=== PATIENT | male | born 1945 | race Caucasian/White ===

== ENCOUNTER 2019-08-30 11:53 | Outpatient (CLI) | payer MEDICARE, BC, SELFPAY ==
[2019-08-30 14:18] LABS: Calculated LDL 103 mg/dL (<100); Cholesterol 195 mg/dL (<200); Glucose 81 mg/dL (74-106); HDL Cholesterol 36 mg/dL (40-60); Triglyceride 284 mg/dL (<150)
== END 2019-08-30 12:13 ==
PROVIDERS: PCP Family Medicine; Visit Provider Family Medicine
DX: E78.5 Hyperlipidemia, unspecified (principal)
CPT/HCPCS: 36415; 80061; 82947

== ENCOUNTER 2020-02-29 03:05 | Outpatient (CLI) | payer MEDICARE, BC, SELFPAY ==
[2020-03-01 09:19] LABS: PSA, Screening 2.5 ng/mL (0.0-6.5)
== END 2020-02-29 03:25 ==
PROVIDERS: PCP Family Medicine
DX: N40.0 Benign prostatic hyperplasia without lower urinary tract symptoms (principal); Z12.5 Encounter for screening for malignant neoplasm of prostate
CPT/HCPCS: 36415; 84153

== ENCOUNTER → 2020-03-28 14:10 | Outpatient (BNVA) | payer MEDICARE, BC, SELFPAY | PROVIDERS: PCP Family Medicine; Referring Provider Family Medicine; Visit Provider Nurse Practitioner Gerontology | DX: N40.1 Benign prostatic hyperplasia with lower urinary tract symptoms (principal); R39.12 Poor urinary stream; K62.4 Stenosis of anus and rectum | CPT/HCPCS: 99204 ==

== ENCOUNTER 2021-09-11 01:52 | Outpatient (CLI) | payer MEDICARE, BC, SELFPAY ==
[2021-09-11 08:25] LABS: Calculated LDL 120 mg/dL (<100); Cholesterol 191 mg/dL (<200); HDL Cholesterol 40 mg/dL (40-60); Triglyceride 159 mg/dL (<150)
== END 2021-09-11 01:53 | disposition home or self-care (01) ==
LOC: LBO 01:53
PROVIDERS: PCP Family Medicine; Visit Provider Family Medicine
DX: E78.5 Hyperlipidemia, unspecified (principal)
CPT/HCPCS: 36415; 80061

== ENCOUNTER 2023-09-01 09:40 | Outpatient (CLI) | payer MEDICARE, BC, SELFPAY ==
[2023-09-01 12:26] LABS: Glucose 95 mg/dL (74-106)
[2023-09-02 09:59] LABS: Calculated LDL 91 mg/dL (<100); Cholesterol 185 mg/dL (<200); HDL Cholesterol 36 mg/dL (40-60); Triglyceride 291 mg/dL (<150)
[2023-09-02 15:00] LABS: Lab Add On Test DONE
== END 2023-09-01 09:41 | disposition home or self-care (01) ==
LOC: LOS 09:40
PROVIDERS: PCP Family Medicine; Referring Provider Family Medicine; Visit Provider Family Medicine
DX: R73.9 Hyperglycemia, unspecified (principal); Z13.220 Encounter for screening for lipoid disorders
CPT/HCPCS: 36415; 80061; 82947

== ENCOUNTER 2024-06-16 14:57 | Emergency (ER) | payer MEDICARE, BC, SELFPAY ==
[2024-06-16 15:04] VITALS: BP 124/84; PULSE 97; RESP 16; TEMP 37.1; O2SAT 98
[2024-06-16] MEDS: Lidocaine 2% Pres-Free W/EPI 1/200,000 20 ML VIAL (15:46)
[2024-06-16] MEDS: Diph,Pertuss(Acell),Tet Vac/Pf 0.5 ML SYR IM (16:05)
--- NOTE | 2024-06-16 16:09 | ED.GENADUL_ITS ---
Discharge Plan Disposition Patient Disposition: Home Condition: Stable Discharge Details Clinical Impression: Laceration of left wrist Primary Care Provider: Tyree Bedolla ED Provider: Brianna Anglin Home Meds and New Rx's Prescriptions: No Action Advil PM 1 EACH tablet 1 tab PO HS PRN Discharge Instructions Instructions: Laceration Repair With Stitches ED Additional Instructions: You were seen in the emergency department today for evaluation of a laceration. You had a full physical examination that was reassuring and did not have any injury to your tendons, nerves, or blood vessels. You had 12 stitches placed, which need to be removed in 7 to 10 days. Please keep the area clean and dry, use antibiotic ointment at least once per day, and change the dressing anytime you need to. Please avoid soaking or scrubbing, pat dry after bathing or washing hands. You can use Tylenol and ibuprofen for management of pain, and should follow-up with your primary care provider for any concerns. Thank you for allowing us to be part of your care. HPI General Mode of arrival: ambulatory . Date/Time Provider Initiated Documentation: 06/16/24 15:12 . Limitations to Documentation: no limitations . Information obtained by: patient, family and old records reviewed . HPI Narrative: HPI: This is a 78-year-old male patient with a past medical history significant for KADY, who is presenting for evaluation of a wrist injury. The patient reports that he was using a chainsaw to cut down a tree, the tree fell and knocked the chainsaw from his hand and he sustained a laceration to the flexor aspect of the wrist. The patient reports that he did not sustain additional injury during this event, presented immediately for care, took no medications prior to arrival. He states that he is not experiencing any tingling, numbness, or weakness of the hand. Does not recall when his last tetanus shot was. Was in his normal state of health prior to this event. Exam: Gen: Awake and alert, in no apparent distress HEENT: Non-icteric sclera Neck: Supple Lungs: No apparent respiratory distress, normal respiratory effort. CV: Appears well perfused Abdomen: Non-distended MSK: Moves 4 extremities without apparent limitation in ROM. The patient has full preserved range of motion, flexion and extension against resistance at the wrist, hand, fingers. He has no sensory deficits, has brisk capillary refill. Skin: Visualized skin without rashes, cyanosis. The patient has an approximately 5 cm laceration to the flexor aspect of the left wrist, with visible subcutaneous tissue and fascia. No tendon disruption, arterial disruption, active bleeding Neuro: Normal Gait, no obvious focal deficits or facial asymmetry. Speaks in full, clear sentences. Psych: Appropriate for situation. MDM: This is a 78-year-old male patient presenting for evaluation of wrist laceration. Differential includes but is not limited to laceration, certainly c onsidered muscular injury, tendinous injury, neurovascular injury, that this is not consistent with the patient's physical examination. I considered foreign body though this was not visualized on thorough cleansing of the wound, no concerning mechanism or physical exam findings for underlying fracture or dislocation. ED Course: Tetanus was updated, and the laceration was repaired as noted below in a single layer. The patient tolerated this procedure well, and we discussed suture and wound care. Sutures will be removed in 7 to 10 days, patient's feels comfortable performing wound care. At this time, the patient has had a full medical evaluation and is safe for discharge to home. They are hemodynamically stable, ambulatory, and tolerating PO. They are understanding of the follow-up plan and return precautions. They left our facility without incident. Brianna Anglin MD Related Data Home Medications ?Medication ?Instructions ?Recorded ?Confirmed ibuprofen-diphenhydramine citrate 1 tab PO HS PRN 08/25/17 06/16/24 200 mg-38 mg tablet (Advil PM) Allergies Allergy/AdvReac Type Severity Reaction Status Date / Time No Known Allergies Allergy Verified 06/16/24 15:06 General Stated Complaint: Laceration FLORA: 2 Course Vital Signs Vital signs: Vital Signs Temperature 37.1 C 06/16/24 15:04 Pulse 97 H 06/16/24 15:04 Respiratory Rate 16 06/16/24 15:04 Blood Pressure 124/84 06/16/24 15:04 Pulse Oximetry 98 06/16/24 15:04 Temperature 37.1 C 06/16/24 15:04 Pulse 97 H 06/16/24 15:04 Respiratory Rate 16 06/16/24 15:04 Respiratory Effort Normal 06/16/24 15:07 Blood Pressure 124/84 06/16/24 15:04 Pulse Oximetry 98 12/05/24 15:04 Pain Level 4 06/16/24 15:04 Procedures Laceration Laceration 1: Site: upper extremity Side (If applicable): left Size (cm): 6 Description: linear Depth: simple, single layer Local anesthetic: Lidocaine 2% and with Epi Amount of anesthesia used (mL): 6 Pre-repair: wound explored, irrigated extensively and deep structures intact Skin layer closed with: other (ethilon) Size (cm): 4-0 Number of sutures: 12 Technique: simple, interrupted Medical Decision Making Quality:SDOH Health Related Social Needs: No Data to Display PFSH All Active Problems (Updated 06/16/24 @ 16:10 by Brianna Anglin MD) Laceration of left wrist (Acute) Lipid screening (Acute) Mass of left foot (Acute) Cellulitis (Acute) Benign prostatic hyperplasia (Acute 06/20/13) Male erectile disorder (Acute 06/20/13) 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 Maternal Grandfather , age 30 - Portuguese Influenza Stroke Paternal Grandfather , age 85 Stroke Maternal Grandmother , age 50 Stroke Heart disease Paternal Grandmother , age 92 Heart disease Son No problems noted. Son No problems noted. Daughter No problems noted. Mother , age 92 Depression Social History (Updated 09/11/23 @ 18:24 by Alvina Bhakta) Smoking/Tobacco Use Status: Former Tobacco Use tobacco type: cigarettes Quit Date: 07/13/79 Tobacco: How many years used: 10 Second Hand Exposure: No Counseling given: other Smoking risk assessment performed?: Yes Alcohol Intake: current Alcohol Intake frequency: 0-2 drinks per day Alcohol type: beer Drug use: Occasionally Substance use type: marijuana Counseling given: No Counseling provided: none Caregiver/Support person: No Household members: spouse Housing: house Communication Needs: None Do you need help understanding health information?: Rarely Pets and animals: No Sexually active: Yes Do you think of yourself as: straight/heterosexual Current gender identity: male What is your relationship status?: How often do you talk on the phone with friends or family?: three or more times per week How often do you get together with friends or relatives?: once per week How often do you attend judaism or yarsanism services?: 4 or more times per year Do you belong to any clubs or organized social groups?: yes Panel score (0-1 are the most socially isolated patients): 4 What type of physical activity do you participate in: walking Duration: 45-60 minutes/day Frequency: 3-4 times per week Mecca/Latter-Day: Adventism Special mecca needs: No Seatbelt use: always Helmet use: Yes Helmet use: always Drive intox or ride w/intox dedicated truck driver: No
[2024-06-16 16:19] VITALS: BP 147/77; PULSE 66; RESP 18; TEMP 36.7; O2SAT 98
== END 2024-06-16 16:20 | disposition home or self-care (01) ==
PROVIDERS: Emergency Provider Emergency Medicine; PCP Family Medicine
DX: S61.512A Laceration without foreign body of left wrist, initial encounter (principal); Z23 Encounter for immunization; Z87.891 Personal history of nicotine dependence; W29.3XXA Contact with powered garden and outdoor hand tools and machinery, initial encounter; Y93.H2 Activity, gardening and landscaping; Y92.017 Garden or yard in single-family (private) house as the place of occurrence of the external cause
CPT/HCPCS: 12002; 90471; 90715; 99283; J2004

== ENCOUNTER 2024-09-09 00:59 | Outpatient (CLI) | payer MEDICARE, BC, SELFPAY ==
[2024-09-09 12:58] LABS: Calculated LDL 116 mg/dL (<100); Cholesterol 198 mg/dL (<200); Glucose 106 mg/dL (74-106); HDL Cholesterol 45 mg/dL (>or=40); Triglyceride 185 mg/dL (<150)
== END 2024-09-09 01:00 | disposition home or self-care (01) ==
LOC: LOS 00:59
PROVIDERS: PCP Family Medicine; Visit Provider Family Medicine
DX: R73.9 Hyperglycemia, unspecified (principal); E78.5 Hyperlipidemia, unspecified
CPT/HCPCS: 36415; 80061; 82947

== ENCOUNTER 2024-11-08 11:41 | Observation (INO) | payer MEDICARE, BC, SELFPAY ==
[2024-11-08] VITALS (34 sets, daily range): BP systolic 125–152; BP diastolic 76–106; PULSE 63–83; RESP 10–30; TEMP 35.8–36.2; O2SAT 91–98
--- NOTE | 2024-11-08 11:45 | DI.CT_ITS ---
Exam(s) CT BRAIN NECK CTA EXAM: CT BRAIN NECK CTA CLINICAL HISTORY: Right hand weakness. TECHNIQUE: Imaging Protocol: Axial CT angiography was performed with multi-slice acquisition and mu lti-planar and MIP reconstructions. CONTRAST MATERIAL: Intravenous: Omnipaque 350 Contrast volume:70 ml COMPARISON: No exams were available for comparison FINDINGS: CT Head W/O and W contrast: Ventricles and Extra axial spaces: Normal in size and morphology for the patient's age. Hemorrhage: None. Cerebral parenchyma: No evidence of acute infarct or mass. Midline shift: None. Brainstem/Cerebellum: No acute findings.. Calvarium: Normal. Visualized Paranasal sinuses/Mastoids: Clear. Soft Tissues: Unremarkable. Enhancement: Normal. CTA Brain W: Internal Carotid Arteries: Petrous: Normal. Cavernous: Normal. Cerebral: Normal. Middle Cerebral Arteries: Right: No aneurysm, occlusion or significant stenosis. Left: No aneurysm, occlusion or significant stenosis. Anterior Cerebral Arteries: Right: No aneurysm, occlusion or significant stenosis. Left: No aneurysm, occlusion or significant stenosis. Posterior cerebral Arteries: Right: No aneurysm, occlusion or significant stenosis. Left: No aneurysm, occlusion or significant stenosis. Vertebral Arteries: Right: No aneurysm, occlusion or significant stenosis. Left: No aneurysm, occlusion or significant stenosis. Basilar Artery: No aneurysm, occlusion or significant stenosis. CTA Neck W: Common Carotid: New mild calcification at the common carotid bulbs. Right: No dissection, occlusion or significant stenosis. Left: No dissection, occlusion or significant stenosis. External Carotid: Right: No dissection, occlusion or significant stenosis. Left: No dissection, occlusion or significant stenosis. Internal Carotid: Right: No dissection, occlusion or significant stenosis. Left: No dissection, occlusion or significant stenosis. Vertebral Artery: Right: No dissection, occlusion or significant stenosis. Left: No dissection, occlusion or significant stenosis. Lung Apices: No acute findings. Bones: Degenerative changes. No acute abnormality. Soft Tissues: Normal. IMPRESSION: 1. CTA brain: Normal CTA examination of the [place]. 2. Head CT: Unremarkable CT Head. No evidence of acute infarct or hemorrhage. 3. CTA neck: Mild calcific plaque at the common carotid bulbs. No significant stenosis or evidence o f dissection. Vertebral arteries are intact. RADIATION DOSE DELIVERED: 2,230.71mGy.cm Total DLP DATA REPOSITORY: All CT scans at this facility are submitted to the National Radiology Data Registry (NRDR) Dose Index Registry (DIR) with the [employer] [place] [employer] (ACR). RADIATION OPTIMIZATION: All CT scans at this facility use at least one of these dose optimization te chniques: automated exposure control; mA and/or kV adjustment per patient size (includes targeted exa ms where dose is matched to clinical indication); or iterative reconstruction.
--- NOTE | 2024-11-08 11:45 | RT.EKG_ITS ---
APPROVED REPORT Exam: Resting ECG Reason for Exam: TIA Patient Location: E HR:66 bpm ECG Measurements Heart Rate 66 AXIS MA 205 P 41 QRSd 82 QRS 14 QT 385 T 45 QTc 402 Conclusion Sinus rhythm...normal P axis, V-rate 60- 99 No Occlusion CA
--- NOTE | 2024-11-08 11:46 | ED.GENADUL_ITS ---
Discharge Plan Disposition Patient Disposition: Admit to [facility] Discharge Details Clinical Impression: Transient ischemic attack (TIA) Admit Date/Time: 11/08/24 13:22 Admit Provider: Landon Turner Attending Provider: Landon Turner Primary Care Provider: Tyree Bedolla ED Provider: Mannie Isbell HPI General Date/Time Provider Initiated Documentation: 11/08/24 11:44 . HPI Narrative: MDM This is an overall quite well-appearing normothermic and nontachycardic 79-year-old male with right hand weakness transiently concerning for the possibility of TIA versus stroke. Will send patient for emergent CT angiogram head and neck to assess for any large vessel stenoses for which patient may be a thrombectomy candidate. Patient is not altered to suggest encephalitis. No nuchal rigidity nor fevers to suggest meningitis and no indication for lumbar puncture. No tonic-clonic activity to suggest seizure so no indication for EEG. No chest pain to suggest ACS however will obtain an ECG to assess for dysrhythmia and troponin to assess for myocardial ischemia. Will check basic electrolytes. No rash to suggest zoster. Patient has not been vomiting so my suspicion is low for hypokalemia. Patient is not altered to suggest hyponatremia. 1 PM I spoke with neurology at [facility] who agreed with assessment of TIA in the setting of the patient's nonischemic CT head with no evidence of hemorrhage or critical stenoses. Patient is neither a thrombectomy nor TNK candidate. Neurology advised clopidogrel and aspirin load MRI with hospitalization for echocardiogram. I also ordered the patient high-dose atorvastatin. Tomorrow he will be appropriate for 81 mg of aspirin and 75 mg of clopidogrel. Will send faxed teleneuro note up with the patient. Anticipate hospitalization. 1:12 PM I met with the patient and his family. Patient continues to feel improved. I was in touch with Dr. Turner who graciously agreed to accept patient for hospitalization for neurochecks telemetry and possibility of an updated echo. He will go for MRI at 3 PM. Will continue to monitor on telemetry in the ED. Chronic conditions affecting the care of the patient: N/A History obtained from an outside historian: Patient's External record review: [facility] EMR Diagnostic interpretations performed by me: Per my independent interpretation chest x-ray shows: No acute cardiopulmonary process Per my independent interpretation EKG shows: Narrow complex normal sinus rhythm at a rate of 66 with first-degree AV block. No ST segment abnormalities. No T wave versions. Intervals within normal limits. ]Medications: Clopidogrel aspirin atorvastatin Social determinants of health affecting disposition: N/A Management discussed with: Neurology hospitalist Treatment/interventions considered: N/A Response to therapies provided: Improved symptoms in the ED HPI This is a 79-year-old male arrived emergency department via private vehicle with his in setting of right hand weakness. Patient reportedly has had intermittent episodes of right tongue numbness. He woke up this morning and dropped a coffee cup. He also dropped a steak from his hand which was abnormal for him. He feels well at the moment. He was in his usual state of health yesterday. He denies fevers chest pain shortness of breath. No history of strokes or TIAs in the past. Exam General: Well-appearing in no acute distress speaking in complete sentences. Head: Normocephalic, atraumatic. Eye:[Pupils equal, round reactive to light.] Extraocular eye movements intact. No conjunctival injection. No scleral icterus. Ear, nose, mouth, throat: Grossly normal inspection. Normal voice, handling secretions normally. Neck: Trachea midline. Cardiovascular: Well-perfused distal extremities. Regular rate and rhythm. Respiratory: Nonlabored respiration. Clear lungs bilaterally. Gastrointestinal: Nondistended abdomen.Soft nontender. Musculoskeletal: No edema. Moving all 4 extremities spontaneously. Skin: Normal for age and race, grossly normal temperature and turgor. No acute rash. Neurologic: Cranial nerves II through XII intact grossly. No dysmetria. No dysdiadochokinesia. No pronator drift. gCS 15. Bilateral upper and lower extremity strength 5 out of 5. Psychiatric: Mood and manner are appropriate. Grooming and personal hygiene are appropriate. Related Data Home Medications ?Medication ?Instructions ?Recorded ?Confirmed ibuprofen-diphenhydramine citrate 1 tab PO HS PRN 08/25/17 11/08/24 200 mg-38 mg tablet (Advil PM) tamsulosin 0.4 mg capsule 0.4 mg PO DAILY PRN LUTS #90 caps 09/06/24 11/08/24 Previous Rx's ?Medication ?Instructions ?Recorded tamsulosin 0.4 mg capsule 0.4 mg PO DAILY PRN LUTS #90 caps 09/06/24 Allergies Allergy/AdvReac Type Severity Reaction Status Date / Time No Known Allergies Allergy Verified 11/08/24 11:55 General FLORA: 2 Medical Decision Making Quality:SDOH Health Related Social Needs: No Data to Display PFSH All Active Problems (Updated 11/08/24 @ 13:11 by Mannie Isbell MD) Transient ischemic attack (TIA) (Acute) Lipid screening (Acute) Mass of left foot (Acute) Cellulitis (Acute) Benign prostatic hyperplasia (Acute 06/20/13) Male erectile disorder (Acute 06/20/13) 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 Maternal Grandfather , age 30 - Vietnamese Influenza Stroke Paternal Grandfather , age 85 Stroke Maternal Grandmother , age 50 Stroke Heart disease Paternal Grandmother , age 92 Heart disease Son No problems noted. Son No problems noted. Daughter No problems noted. Mother , age 92 Depression Social History (Updated 09/06/24 @ 13:19 by Rosalinda Braga) Smoking/Tobacco Use Status: Former Tobacco Use tobacco type: cigarettes Quit Date: 07/13/79 Tobacco: How many years used: 10 Second Hand Exposure: No Counseling given: other Smoking risk assessment performed?: Yes Alcohol Intake: current Alcohol Intake frequency: 0-2 drinks per day Alcohol type: beer Drug use: Occasionally Substance use type: marijuana Counseling given: No Counseling provided: none Caregiver/Support person: No Household members: spouse Housing: house Communication Needs: None Do you need help understanding health information?: Rarely Pets and animals: No Sexually active: Yes Do you think of yourself as: straight/heterosexual Current gender identity: male What is your relationship status?: How often do you talk on the phone with friends or family?: three or more times per week How often do you get together with friends or relatives?: once per week How often do you attend shinto or jain services?: 4 or more times per year Do you belong to any clubs or organized social groups?: yes Panel score (0-1 are the most socially isolated patients): 4 What type of physical activity do you participate in: walking Duration: 45-60 minutes/day Frequency: 3-4 times per week [place]/Amish: Mormonism Special mecca needs: No Seatbelt use: always Helmet use: Yes Helmet use: always Drive intox or ride w/intox pack train driver: No
[2024-11-08] MEDS: Omnipaque 350 MG/ML 500 ML BTL-Imaging package 75 ML IJ (11:57)
[2024-11-08 11:58] LABS: Abs Immature Grans 0.03 10^3/uL (0.0-0.06); Absolute Basophil Count 0.03 10^3/uL (0.0-0.2); Absolute Eosinophil Count 0.11 10^3/uL (0.0-0.7); Absolute Lymphocyte Count 2.78 10^3/uL (1.2-3.4); Absolute Monocyte Count 0.86 10^3/uL (0.1-0.8); Absolute Neutrophil Count 5.72 10^3/uL (1.2-6.7); Basophils % 0.3 %; Eosinophils % 1.2 %; HCT 47.6 % (40.0-50.0); HGB 15.7 g/dL (13.5-17.5); Immature Grans % 0.3 %; Lymphocytes % 29.2 %; MCH 30.5 pg (27.0-33.0); MCV 92 fL (80-95); MPV 9.4 fL (8.0-11.0); Platelet Count 166 10^3/uL (130-400); RBC 5.15 10^6/uL (4.36-5.78); RDW 13.1 % (11.8-14.1); RDW-SD 44.6 fL; WBC 9.53 10^3/uL (4.4-10.8)
[2024-11-08] MEDS: Normal Saline - Diluent 50 ML VIAL IJ (12:01)
--- NOTE | 2024-11-08 12:20 | DI.RAD_ITS ---
Exam(s) XR CHEST 1V IN DI DEPT EXAM: XR CHEST 1V IN DI DEPT CLINICAL HISTORY: Right hand weakness TECHNIQUE: 2D digital imaging was performed. COMPARISON: No exams were available for comparison FINDINGS: Overlying monitoring leads. LUNGS: Clear. No pleural abnormality seen. HEART: Normal size. AORTA: Normal diameter. BONES: Old right rib fractures. Soft tissues: Unremarkable. IMPRESSION: No acute findings. DATA REPOSITORY: RADIATION DOSE DELIVERED:
[2024-11-08 12:29] LABS: BUN 18 mg/dL (7-18); CREATININE 1.2 mg/dL (0.70-1.30); Calcium 9.9 mg/dL (8.5-10.1); Chloride 104 mmol/L (98-107); Glucose 96 mg/dL (74-106); Potassium 4.6 mmol/L (3.5-5.1); Sodium 141 mmol/L (136-145); TSH (W/Ref FT4) 2.32 uIU/mL (0.36-3.74); Troponin I 4 ng/L (<or=76)
[2024-11-08 13:20] LABS: Bilirubin Negative (Negative); Blood Negative (Negative); Clarity Clear (Clear); Glucose Negative (Negative); Ketones Negative (Negative); Leukocyte Esterase Negative (Negative); Nitrite Negative (Negative); Specific Gravity <= 1.005 (1.005-1.025); Urobilinogen 0.2 mg/dL (Up to 0.2)
--- NOTE | 2024-11-08 13:24 | HPE_ITS ---
Date of service: 11/08/24 Time of Service: 13:24 Assessment and Plan Assessment and plan (1) Transient ischemic attack (TIA): Status: Acute Assessment and plan: admit to telemetry right hand numbness, resolved and asymptomatic CTA with no acute bleed or large vessel occlusion given asa load, plavix load and high dose statin MRI and echo pending. (2) Benign prostatic hyperplasia: Status: Acute Assessment and plan: continue tamsulosin monitor for urinary retention discussed with DR Turner History of Present Illness Narrative: patient presents to ED with transient right hand numbness. stroke work up completed and unremarkable, teleneuro consult completed and recommendations for plavix load, asa load and high dose statin with observation admission for stroke rule out provided. hospitalist contact and will admit on telemetry no fever chills or recent illness, no similar history. Review of Systems All systems reviewed & are unremarkable except as noted in HPI and below PFSH All Active Problems (Updated 11/08/24 @ 13:11 by Mannie Isbell MD) Transient ischemic attack (TIA) (Acute) Lipid screening (Acute) Mass of left foot (Acute) Cellulitis (Acute) Benign prostatic hyperplasia (Acute 06/20/13) Male erectile disorder (Acute 06/20/13) Mantoux: positive (Acute 02/10/92) Obstructive sleep apnea (Acute 02/03/15) sleep study -2014: mild with hypoxemia:tx options pending Rectal/anal stenosis (Acute 06/11/04) Rectal Varices of other sites (Acute) L varicocele-loose inguinal rings Family History Father , age 89 Diabetes Heart disease Sister No problems noted. Maternal Grandfather , age 30 - German Influenza Stroke Paternal Grandfather , age 85 Stroke Maternal Grandmother , age 50 Stroke Heart disease Paternal Grandmother , age 92 Heart disease Son No problems noted. Son No problems noted. Daughter No problems noted. Mother , age 92 Depression Social History (Updated 09/06/24 @ 13:19 by Rosalinda Braga) Smoking/Tobacco Use Status: Former Tobacco Use tobacco type: cigarettes Quit Date: 07/13/79 Tobacco: How many years used: 10 Second Hand Exposure: No Counseling given: other Smoking risk assessment performed?: Yes Alcohol Intake: current Alcohol Intake frequency: 0-2 drinks per day Alcohol type: beer Drug use: Occasionally Substance use type: marijuana Counseling given: No Counseling provided: none Caregiver/Support person: No Household members: spouse Housing: house Communication Needs: None Do you need help understanding health information?: Rarely Pets and animals: No Sexually active: Yes Do you think of yourself as: straight/heterosexual Current gender identity: male What is your relationship status?: How often do you talk on the phone with friends or family?: three or more times per week How often do you get together with friends or relatives?: once per week How often do you attend scientologist or yazdanism services?: 4 or more times per year Do you belong to any clubs or organized social groups?: yes Panel score (0-1 are the most socially isolated patients): 4 What type of physical activity do you participate in: walking Duration: 45-60 minutes/day Frequency: 3-4 times per week Mecca/Jain: Restoration Special mecca needs: No Seatbelt use: always Helmet use: Yes Helmet use: always Drive intox or ride w/intox bus van driver: No Meds Allergies and Home Medications Allergies Allergy/AdvReac Type Severity Reaction Status Date / Time No Known Allergies Allergy Verified 11/08/24 11:55 Home Medications ?Medication ?Instructions ?Recorded ?Confirmed ?Type ibuprofen-diphenhydramine citrate 1 tab PO HS PRN 08/25/17 11/08/24 History 200 mg-38 mg tablet (Advil PM) tamsulosin 0.4 mg capsule 0.4 mg PO DAILY PRN LUTS #90 caps 09/06/24 11/08/24 Rx Exam Narrative Exam Narrative: well-appearing male stated age head is atraumatic eyes nonicteric noninjected facial features symmetrical oral mucosas moist neck is supple full range of motion respiratory clear with cranial nerves II through XII grossly intact strength 5 out of 5. Cardiovascular regular rate no murmurs abdomen soft extremities [id number] with no ataxia. Psychiatric appropriate mood and affect Results Labs 11/08/24 11:50 11/08/24 11:50 Labs: Laboratory Results - last 24 hr 11/08/24 11/08/24 11:50 13:10 WBC 9.53 RBC 5.15 Hgb 15.7 Hct 47.6 MCV 92 MCH 30.5 MCHC 33.0 RDW 13.1 Plt Count 166 MPV 9.4 Immature Gran % 0.3 Neutrophils % 60.0 Lymphocytes % 29.2 Monocytes % 9.0 Eosinophils % 1.2 Basophils % 0.3 Nucleated RBC % 0.0 Absolute Neutrophils 5.72 Absolute Lymphocytes 2.78 Absolute Monocytes 0.86 H Absolute Eosinophils 0.11 Absolute Basophils 0.03 Sodium 141 Potassium 4.6 Chloride 104 Carbon Dioxide 28.0 Anion Gap 9.0 BUN 18 Creatinine 1.2 Est GFR (CKD-EPI 2020) 61.90 Glucose 96 Calcium 9.9 Magnesium 2.0 Troponin I 4 TSH 2.32 Urine Color Yellow Urine Clarity Clear Urine pH 6.0 Ur Specific [place] <= 1.005 Urine Protein Negative Urine Ketones Negative Urine Blood Negative Urine Nitrite Negative Urine Bilirubin Negative Urine Urobilinogen 0.2 Ur Leukocyte Esterase Negative Urine Glucose Negative Last Vital Signs Pulse 77 11/08/24 11:47 Resp 16 11/08/24 11:58 BP 152/106 H 11/08/24 11:47 Pulse Ox 93 11/08/24 11:47 PAWSS Have you Been Recently Intoxicated or Drunk Within the Last 30 days?: No Have you Ever Experienced Previous Episodes of Alcohol Withdrawal?: No Have you ever Experienced Withdrawal Seizures?: No Have you ever Experienced Delirium Tremens(DT)s?: No Have you ever undergone Alcohol Rehabilitation Treatment (i.e, inpt ot outpatient treatment programs)?: No Have you ever Experienced Blackouts?: No Have you ever Combined Alcohol with other Downers within the last 90 days?: No Have you ever Combined Alcohol with any other Substance of Abuse during the last 90 days?: No Positive Blood Alcohol level on Presentation? [PCS.BAL]: No Evidence of Increased Autonomic Activity (i.e. HR>120, tremor, sweating, agitation, nausea)?: No Result: 0 Time Spent Time spent with Patient: 55-74 minutes Time was spent: preparing to see the patient(eg.review tests), obtaining and/or reviewing separately otained hiistory, ordering medications,tests, procedures, referring, communicating with other health pharmacist critical care, indepentently interpreting results and counseling the patient
[2024-11-08] MEDS: Clopidogrel 300 MG TAB PO (13:44)
[2024-11-08] MEDS: Aspirin 325 MG TAB PO (13:44)
[2024-11-08] MEDS: Atorvastatin 40 MG TAB 80 MG PO (13:45)
[2024-11-08 14:29] LABS: Troponin I 4 ng/L (<or=76)
--- NOTE | 2024-11-08 14:33 | W.PC.ACHO ---
Registration Status: Primary Language: Preferred Language: ED Information & Data Chief Complaint CVA/TIA 11/08/24 11:54 Chief Complaint CVA/TIA 11/08/24 11:47 Triage Note Noticed several instances of 11/08/24 11:47 head butler weakness starting at 0630 today (dropped stick and pencil in separate instances today). PT concerned about having a thick tongue or occasional difficulty speaking. PT reports that he feels otherwise normal. Most Recent Vital Signs Pulse 67 11/08/24 14:01 Pulse 69 11/08/24 14:01 Respiratory Rate 21 11/08/24 14:01 Respiratory Effort Normal, Non-Labored 11/08/24 11:58 Respiratory Depth Normal 11/08/24 11:58 Respiratory Pattern Normal 11/08/24 11:58 Blood Pressure 125/85 11/08/24 14:01 Blood Pressure Mean 95 11/08/24 14:01 Blood Pressure Position Sitting 11/08/24 11:47 Pulse Oximetry 93 11/08/24 13:20 Oxygen Delivery Method Room Air 11/08/24 11:47 Oxygen Flow Rate 0 11/08/24 11:47 Allergies No Known Allergies Allergy (Verified 11/08/24 11:55) Active Medications Generic Name Dose Route Start Last Admin Trade Name Freq PRN Reason Stop Dose Admin Iohexol 75 ml 11/08/24 12:00 11/08/24 11:57 Omnipaque 350 Mg/Ml 500 Ml Btl-Imaging Package IJ 12/08/24 23:59 75 ml DIRECTED DENG Administration Sodium Chloride 50 ml 11/08/24 12:15 11/08/24 12:01 Normal Saline - Diluent 50 Ml Vial IJ 50 ml .FOR DI USE DENG Administration IV IV Catheter Type [Right Peripheral IV Antecubital] IV Catheter Gauge [Right 18 Antecubital] Diagnostics 11/08/24 11/08/24 11/08/24 Range/Units Unknown 14:50 14:01 WBC (4.4-10.8) 10^3/uL RBC (4.36-5.78) 10^6/uL Hgb (13.5-17.5) g/dL Hct (40.0-50.0) % MCV (80-95) fL MCH (27.0-33.0) pg MCHC (32.0-36.0) % RDW (11.8-14.1) % Plt Count (130-400) 10^3/uL MPV (8.0-11.0) fL Immature Gran % % Neutrophils % % Lymphocytes % % Monocytes % % Eosinophils % % Basophils % % Nucleated RBC % (0.0-0.3) % Absolute Neutrophils (1.2-6.7) 10^3/uL Absolute Lymphocytes (1.2-3.4) 10^3/uL Absolute Monocytes (0.1-0.8) 10^3/uL Absolute Eosinophils (0.0-0.7) 10^3/uL Absolute Basophils (0.0-0.2) 10^3/uL Sodium (136-145) mmol/L Potassium (3.5-5.1) mmol/L Chloride (98-107) mmol/L Carbon Dioxide (21.0-32.0) mmol/L Anion Gap (3-11) mmol/L BUN (7-18) mg/dL Creatinine (0.70-1.30) mg/dL Est GFR (CKD-EPI 2020) (mL/min/1.73m2) Glucose (74-106) mg/dL Calcium (8.5-10.1) mg/dL Magnesium (1.8-2.4) mg/dL Troponin I Pending Pending (<or=76) ng/L TSH (0.36-3.74) uIU/mL Urine Color (Yellow) Urine Clarity (Clear) Urine pH (5-8) Ur Specific [place] (1.005-1.025) Urine Protein (Neg-Trace) mg/dL Urine Ketones (Negative) mg/dL Urine Blood (Negative) Urine Nitrite (Negative) Urine Bilirubin (Negative) Urine Urobilinogen (Up to 0.2) mg/dL Ur Leukocyte Esterase (Negative) Urine Glucose (Negative) mg/dL Add-On Test Request Pending 11/08/24 11/08/24 Range/Units 13:10 11:50 WBC 9.53 (4.4-10.8) 10^3/uL RBC 5.15 (4.36-5.78) 10^6/uL Hgb 15.7 (13.5-17.5) g/dL Hct 47.6 (40.0-50.0) % MCV 92 (80-95) fL MCH 30.5 (27.0-33.0) pg MCHC 33.0 (32.0-36.0) % RDW 13.1 (11.8-14.1) % Plt Count 166 (130-400) 10^3/uL MPV 9.4 (8.0-11.0) fL Immature Gran % 0.3 % Neutrophils % 60.0 % Lymphocytes % 29.2 % Monocytes % 9.0 % Eosinophils % 1.2 % Basophils % 0.3 % Nucleated RBC % 0.0 (0.0-0.3) % Absolute Neutrophils 5.72 (1.2-6.7) 10^3/uL Absolute Lymphocytes 2.78 (1.2-3.4) 10^3/uL Absolute Monocytes 0.86 H (0.1-0.8) 10^3/uL Absolute Eosinophils 0.11 (0.0-0.7) 10^3/uL Absolute Basophils 0.03 (0.0-0.2) 10^3/uL Sodium 141 (136-145) mmol/L Potassium 4.6 (3.5-5.1) mmol/L Chloride 104 (98-107) mmol/L Carbon Dioxide 28.0 (21.0-32.0) mmol/L Anion Gap 9.0 (3-11) mmol/L BUN 18 (7-18) mg/dL Creatinine 1.2 (0.70-1.30) mg/dL Est GFR (CKD-EPI 2020) 61.90 (mL/min/1.73m2) Glucose 96 (74-106) mg/dL Calcium 9.9 (8.5-10.1) mg/dL Magnesium 2.0 (1.8-2.4) mg/dL Troponin I 4 (<or=76) ng/L TSH 2.32 (0.36-3.74) uIU/mL Urine Color Yellow (Yellow) Urine Clarity Clear (Clear) Urine pH 6.0 (5-8) Ur Specific [place] <= 1.005 (1.005-1.025) Urine Protein Negative (Neg-Trace) mg/dL Urine Ketones Negative (Negative) mg/dL Urine Blood Negative (Negative) Urine Nitrite Negative (Negative) Urine Bilirubin Negative (Negative) Urine Urobilinogen 0.2 (Up to 0.2) mg/dL Ur Leukocyte Esterase Negative (Negative) Urine Glucose Negative (Negative) mg/dL Add-On Test Request [id number] Documentation Fingerstick Glucose Start: 11/08/24 11:51 Freq: Status: Active Protocol: Activity Type Activity Date Activity User E-sign Co-sign Detail Recorded Client Recorded Date Recorded By Document 11/08/24 11:50 BKG DAEMON(3) [id number] 11/08/24 11:51 BKG DAEMON(4) Intake and Output - 24 Hour Total 11/08/24 11:41 thru 11/08/24 11:47 Weight 90.718 kg Falls Risk Assessment History of Falls No History 11/08/24 11:54 Contributing Factors No Factors 11/08/24 11:54 Ambulatory Aids Independent 11/08/24 11:54 Tubes/Lines None 11/08/24 11:54 Gait Evaluation No gait disturbance 11/08/24 11:54 Cognition No cognitive impairment 11/08/24 11:54 Fall Total Score 0 11/08/24 11:54 Level of Risk Standard/Low Risk 11/08/24 11:54 Problems (Last Reviewed 09/06/24 @ 08:43 by Tyree Bedolla MD) Transient ischemic attack (TIA) (Acute) Benign prostatic hyperplasia (Acute 06/20/13) v v v v v v v v v Sending and/or Receiving Nurses: Please use comment section below to note any information pertinent to the patient hand-off not included above. Information / Comments: A&O x4, independent, heart regular, on RA, no respiratory S/S, Stands w/out symptoms to urinate in urinal, MRI at 1500, Sudden onset of right hand numbness/weakness at 0630 couldn't write with hand. Symptoms resolved prior to coming into ER. Only takes Flomax prior to admit. Report received from: Kelley VO in ER at [id number]
[2024-11-08 14:49] LABS: Lab Add On Test DONE
[2024-11-08 15:07] LABS: Calculated LDL 101 mg/dL (<100); Cholesterol 186 mg/dL (<200); HDL Cholesterol 46 mg/dL (>or=40); Triglyceride 195 mg/dL (<150)
[2024-11-08 15:12] LABS: Hemoglobin A1C 5.9 % (<5.7)
--- NOTE | 2024-11-08 15:55 | DI.MRI_ITS ---
Exam(s) MR BRAIN WO EXAM: MR BRAIN WO CLINICAL HISTORY: Right hand weakness TECHNIQUE: Multiplanar multisequence MRI of the brain was performed. COMPARISON: CT CT BRAIN NECK CTA from 11/08/2024 FINDINGS: VENTRICLES AND EXTRA AXIAL SPACES: Normal in size and morphology for the patient's age. MIDLINE SHIFT: None. CEREBRAL PARENCHYMA: No focus of restricted diffusion to suggest acute infarct. No space-occupying le anca identified. There is encephalomalacia involving the left cerebellum. There are few tiny hyperin tense foci seen in the white matter on the FLAIR and T2 weighted images most consistent with chronic microvascular ischemic disease. HEMORRHAGE: None. BRAINSTEM/CEREBELLUM: Normal. CALVARIUM: Normal. VISUALIZED PARANASAL SINUSES/MASTOIDS:Clear. [place]: Normal flow void. PITUITARY GLAND: Unremarkable. OTHER FINDINGS: None. IMPRESSION: No evidence of an acute infarct. DATA REPOSITORY:
[2024-11-08] MEDS: Melatonin 3 MG TAB PO (23:17)
[2024-11-09 03:17] VITALS: BP 107/75; PULSE 64; RESP 22; TEMP 36.7; O2SAT 95
[2024-11-09 06:34] LABS: Abs Immature Grans 0.03 10^3/uL (0.0-0.06); Absolute Basophil Count 0.04 10^3/uL (0.0-0.2); Absolute Eosinophil Count 0.17 10^3/uL (0.0-0.7); Absolute Lymphocyte Count 2.02 10^3/uL (1.2-3.4); Absolute Monocyte Count 0.59 10^3/uL (0.1-0.8); Absolute Neutrophil Count 5.02 10^3/uL (1.2-6.7); Basophils % 0.5 %; Eosinophils % 2.2 %; HCT 45.9 % (40.0-50.0); HGB 15.3 g/dL (13.5-17.5); Immature Grans % 0.4 %; Lymphocytes % 25.7 %; MCH 30.7 pg (27.0-33.0); MCHC 33.3 % (32.0-36.0); MCV 92 fL (80-95); MPV 9.5 fL (8.0-11.0); Monocytes % 7.5 %; Neutrophils % 63.7 %; Platelet Count 147 10^3/uL (130-400); RBC 4.98 10^6/uL (4.36-5.78); RDW 13.1 % (11.8-14.1); RDW-SD 44.6 fL; WBC 7.87 10^3/uL (4.4-10.8)
[2024-11-09 06:59] LABS: Anion Gap 8.4 mmol/L (3-11); BUN 17 mg/dL (7-18); CO2 26.6 mmol/L (21.0-32.0); CREATININE 1.2 mg/dL (0.70-1.30); Calcium 9.7 mg/dL (8.5-10.1); Chloride 107 mmol/L (98-107); Glucose 105 mg/dL (74-106); Potassium 4.5 mmol/L (3.5-5.1); Sodium 142 mmol/L (136-145)
[2024-11-09] MEDS: Tamsulosin 0.4 MG CAPCR PO (07:32)
[2024-11-09] MEDS: Aspirin 81 MG CHEW PO (07:32)
[2024-11-09] MEDS: Clopidogrel 75 MG TAB PO (07:32)
[2024-11-09 07:34] VITALS: BP 108/82; PULSE 71; RESP 20; TEMP 36.2; O2SAT 96
--- NOTE | 2024-11-09 09:12 | PDOC.CMIN ---
Date of service: 11/09/24 Time of Service: 09:12 Care Management Initial Assmt Initial Assessment Reason for Hospitalization: TIA Functional Status/Living Situation Patient Presentation: Daniel was sitting up in bed waiting to go down for his Echocardiogram when CM met with him. He was pleasant in interaction and agreeable to conversation. Daniel was admitted yesterday with a TIA. He had experienced some numbness in his right hand which resolved spontaneously. A CTA was done and was reassuring. He will be discharged home this afternoon when the Echo is done. Daniel lives in a single family home in [place] with his of many years, Dolly. He has 3 children; one son, Mark, lives locally and the other 2 are out of state. Daniel is independent at baseline and does not receive any services. 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[employer]) Instrumental Activities of Daily Living (ADLs): Independent Medications Medication Management: No Issues/Barriers identified Advance Directives Advance Directives: Do you have an Advance Directive: Y 09/06/24 12:16 AD On File at [facility]: Y 09/06/24 12:16 Date Asked 06/16/24 06/16/24 15:13 AD Date Reviewed 09/06/24 09/06/24 12:16 COLST On File at [facility] COLST Date Scanned Code Status Resuscitation Status Full Code Portal Pt does not currently have a portal and education provided: Yes Insurance Coverage/Financial Issues Insurance: Medicare /[facility] Care Team Visit Care Team Role Provider Type Elizabet Montes De Oca NP NURSE PRACTITIONER Tyree Bedolla MD Primary Care Provider [facility] STAFF PHYSICIAN Mannie Isbell MD Emergency Provider [facility] STAFF PHYSICIAN Landon Turner MD Admit Provider [facility] STAFF PHYSICIAN Attending Provider Discharge Potential Discharge Needs: PCP F/U Appt Anticipated Barriers to Discharge: None Identified Patient/Family Education Needs: Review discharge instructions, discuss Ask Me Three Transportation: Private vehicle Plan: Anticipate Daniel will be discharged home with no new services when medically cleared. He will follow up with his community providers and plan of care and transport with family. CM will follow. Social Determinants of Health Screening Social Determinants of health last assessed in clinic: 11/09/24 Will the Patient Participate in the Screening?: Yes Do you worry about having a steady place to live?: no Problems where you live: no known problems In the past 12 months, have you had to go without electric, gas, oil or water in your home?: no 1. Within the past 12 months, we worried whether our food would run out before we got money to buy more.: Never true 2. Within the past 12 months, the food we bought just didn't last and we didn't have money to get more.: Never true Has lack of transportation kept you from medical appointments or from doing things needed for daily living?: no Has anyone in your life made you feel unsafe or unsupported?: no How hard is it for you to pay for the very basics like food, housing, medical care, and heating? Would you say it is:: Not hard at all Do you want help finding or keeping work or a job?: I do not need or want help If for any reason you need help with day-to-day activities such as bathing, preparing meals, shopping, managing finances, etc., do you get the help you need?: I don?t need any help How often do you feel lonely or isolated from those around you?: Never Do you speak a language other than [place] Citizen at home?: No Does the patient want assistance with any of the above?: No PFSH All Active Problems (Updated 11/09/24 @ 12:15 by Elizabet Montes De Oca NP) Tremor of right hand (Acute) Transient ischemic attack (TIA) (Acute) Lipid screening (Acute) Mass of left foot (Acute) Cellulitis (Acute) Benign prostatic hyperplasia (Acute 06/20/13) Male erectile disorder (Acute 06/20/13) 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 Maternal Grandfather , age 30 - Mong[place]ian Influenza Stroke Paternal Grandfather , age 85 Stroke Maternal Grandmother , age 50 Stroke Heart disease Paternal Grandmother , age 92 Heart disease Son No problems noted. Son No problems noted. Daughter No problems noted. Mother , age 92 Depression Social History (Updated 09/06/24 @ 13:19 by Rosalinda Braga) Smoking/Tobacco Use Status: Former Tobacco Use tobacco type: cigarettes Quit Date: 07/13/79 Tobacco: How many years used: 10 Second Hand Exposure: No Counseling given: other Smoking risk assessment performed?: Yes Alcohol Intake: current Alcohol Intake frequency: 0-2 drinks per day Alcohol type: beer Drug use: Occasionally Substance use type: marijuana Counseling given: No Counseling provided: none Caregiver/Support person: No Household members: spouse Housing: house Communication Needs: None Do you need help understanding health information?: Rarely Pets and animals: No Sexually active: Yes Do you think of yourself as: straight/heterosexual Current gender identity: male What is your relationship status?: How often do you talk on the phone with friends or family?: three or more times per week How often do you get together with friends or relatives?: once per week How often do you attend yarsanism or sikh services?: 4 or more times per year Do you belong to any clubs or organized social groups?: yes Panel score (0-1 are the most socially isolated patients): 4 What type of physical activity do you participate in: walking Duration: 45-60 minutes/day Frequency: 3-4 times per week Mecca/Baptist: Lutheran Special mecca needs: No Seatbelt use: always Helmet use: Yes Helmet use: always Drive intox or ride w/intox racing driver: No
--- NOTE | 2024-11-09 10:57 | PHA.REVIEW2 ---
Pharmacy Admission Review Admission Clinical Review Admission Pharmacy Review: Transient ischemic attack (TIA) (Acute) Benign prostatic hyperplasia (Acute 06/20/13) No Known Allergies Allergy (Verified 11/08/24 11:55) Resuscitation Status Full Code Height 5 ft 10 in Weight 90.265 kg Pharmacy Admission Review Renal Dosing Renal Dosing: BUN 17 mg/dL (7-18) 11/09/24 06:27 Creatinine 1.2 mg/dL (0.70-1.30) 11/09/24 06:27 Medications needing adjustments: Reviewed (CrCl 57.34 mL/min) List of meds needing interventions: Current medications are okay Anticoagulation Anticoagulation: Hgb 15.3 g/dL (13.5-17.5) 11/09/24 06:27 Hct 45.9 % (40.0-50.0) 11/09/24 06:27 Plt Count 147 10^3/uL (130-400) 11/09/24 06:27 Creatinine 1.2 mg/dL (0.70-1.30) 11/09/24 06:27 DVT Prophylaxis: Reviewed (TEDs) Relevant Labs Relevant Labs: Sodium 142 mmol/L (136-145) 11/09/24 06:27 Potassium 4.5 mmol/L (3.5-5.1) 11/09/24 06:27 Chloride 107 mmol/L (98-107) 11/09/24 06:27 Magnesium 2.0 mg/dL (1.8-2.4) 11/08/24 11:50 Electrolytes, C-Reactive P, ESR: Reviewed Cardiac Review Cardiac Review: Troponin I Cancelled 11/08/24 14:50 BP, HR, EF%: Reviewed (BP and HR WNL) QTc Review QTc: Reviewed (402 from 11/08/24) IV to PO Switch IV Medications: Reviewed Home Meds Home Med List reviewed: Reviewed Relevent Home Meds Not ordered & why?: Benadryl (PRN) Current Meds Current Medication Order Review: Reviewed
[2024-11-09 11:13] VITALS: BP 126/89; PULSE 75; RESP 16; TEMP 36.4; O2SAT 95
--- NOTE | 2024-11-09 11:36 | CHAPLAIN ---
Daniel was sitting up on the edge of the bed, dressed in his own clothes, when I visited his morning. He's waiting for one more test, and will then likely be discharged. His , Dolly, was visiting with him. Daniel is a member of [employer].
--- NOTE | 2024-11-09 12:15 | W.PM.DS.N ---
Date of service: 11/09/24 Time of Service: 12:15 DS: Diagnosis Discharge Diagnosis (1) Tremor of right hand: Status: Acute (2) Benign prostatic hyperplasia: Status: Acute Discharge Plan Disposition Patient Disposition: Home Condition: Stable Discharge Details Reason For Visit: TIA Admit Date/Time: 11/08/24 13:22 Admit Provider: Landon Turner Attending Provider: Landon Turner Primary Care Provider: Tyree Bedolla Hospital Course Hospital Course: This is a 79-year-old male patient no significant past medical history presents to the emergency department with complaints of right upper extremity tremor. States he was unable to hold items in his right hand because of it. Denies any headache visual disturbance fever or similar history. The episode was brief and resolved spontaneously. Workup in the emergency department included a CTA of the head and neck which showed no large vessel occlusion. He was in normal sinus rhythm on EKG with negative troponin. Labs for routine stroke workup remarkable with no abnormalities. He had no other neurodeficits. He underwent a teleneuro consultation recommendations for Plavix aspirin load and high-dose statin. He was referred to observation for stroke rule out. He underwent an MRI which showed no acute stroke or findings to explain his symptoms. He remained in normal sinus rhythm on telemetry with no dysrhythmia. He did have another episode of right upper extremity tremor that was brief and resolved spontaneously. Hemodynamically he remained stable. Echocardiogram was completed prior to discharge results to be reviewed with primary care provider. Hemoglobin A1c 5.9. Lipid profile reviewed and patient would like to discuss continuing with statins with his primary care provider outpatient. He is being discharged to home on a baby aspirin will discuss statin with PCP, review echocardiogram results with PCP. He will be referred to neurology for further workup recommendations for his intermittent tremor. discussed with DR Turner Home Meds and New Rx's Prescriptions: New aspirin [Children's Aspirin] 81 mg Tablet,Chewable 81 mg PO DAILY Qty: 30 0RF atorvastatin 40 mg tablet 40 mg PO DAILY Qty: 30 0RF Continued tamsulosin 0.4 mg capsule 0.4 mg PO DAILY PRN (Reason: LUTS) Qty: 90 1RF Advil PM 1 EACH tablet 1 tab PO HS PRN Discharge Instructions Instructions: Tremor Stand Alone Forms: Nursing Discharge Form Referrals: Tyree Bedolla MD [Primary Care Provider] - Brianna Salmeron MD [ [facility] STAFF PHYSICIAN] - Activity:: Activity as Tolerated Equipment/Supplies:: No Equipment Needed Diet:: As Tolerated Discharge Orders Discharge Orders: Discharge Order (Routine); Ordered 11/09/24 Ordered By: Elizabet Montes De Oca Other Ambulatory Orders: Cardiac Event Recorder (Routine) Timeframe: 20241109 Facility: [facility] - Location: Cardiac Dept Ordered By: Elizabet Montes De Oca DS: Summary Time Spent with Patient providing and/or coordinating discharge services: Greater than 30 minutes Status at Discharge Functional status at discharge: independent ambulation Overall status at discharge: patient is back to baseline Mental Status: mental status grossly normal Speech and Movement: speech and movement normal Mood: congruent mood Affect: normal affect Quality:SDOH Health Related Social Needs: No Data to Display Exam Narrative Exam Narrative: well-appearing male stated age head is atraumatic eyes nonicteric noninjected facial features symmetrical oral mucosas moist neck is supple full range of motion respiratory clear with cranial nerves II through XII grossly intact strength 5 out of 5. Cardiovascular regular rate no murmurs abdomen soft extremities [id number] with no ataxia. Psychiatric appropriate mood and affect Psych Mental Status: mental status grossly normal Speech and Movement: speech and movement normal Mood: congruent mood Affect: normal affect DS: Data Vitals/I&O Vitals and I&O: Vital Signs Temperature 36.4 C L 11/09/24 11:13 Temperature Source Temporal Artery Scan 11/09/24 11:13 Pulse 75 11/09/24 11:13 Pulse Rhythm Regular 11/08/24 16:05 Pulse 71 11/08/24 15:01 Respiratory Rate 16 11/09/24 11:13 Respiratory Effort Normal 11/08/24 16:05 Respiratory Depth Normal 11/08/24 16:05 Respiratory Pattern Normal 11/08/24 16:05 Blood Pressure 126/89 11/09/24 11:13 Blood Pressure Mean 101 11/09/24 11:13 Blood Pressure Position Sitting 11/08/24 11:47 Pulse Oximetry 95 11/09/24 11:13 Oxygen Delivery Method Room Air 11/09/24 11:13 Oxygen Flow Rate 0 11/09/24 11:13 Pain Level 0 11/09/24 11:13 Comment RN notified 11/09/24 07:34 Intake & Output 04/11/09/24 11/09/24 23:59 11:59 23:59 Output Total 125 / 125 600 / 600 Balance -125 / -125 -600 / -600 Weight 90.265 kg Output: Urine 125 / 125 600 / 600 Other: Urine Color Yellow Yellow Urine Appearance Clear Clear Urine Odor Normal None Data Completed and Pending Labs on day of discharge: Labs from last 24 hours 11/09/24 06:27: WBC 7.87, RBC 4.98, Hgb 15.3, Hct 45.9, MCV 92, MCH 30.7, MCHC 33.3, RDW 13.1, Plt Count 147, MPV 9.5, Immature Gran % 0.4, Neutrophils % 63.7, Lymphocytes % 25.7, Monocytes % 7.5, Eosinophils % 2.2, Basophils % 0.5, Nucleated RBC % 0.0, Absolute Neutrophils 5.02, Absolute Lymphocytes 2.02, Absolute Monocytes 0.59, Absolute Eosinophils 0.17, Absolute Basophils 0.04, Sodium 142, Potassium 4.5, Chloride 107, Carbon Dioxide 26.6, Anion Gap 8.4, BUN 17, Creatinine 1.2, Est GFR (CKD-EPI 2020) 61.90, Glucose 105, Calcium 9.7 11/08/24 14:50: Troponin I Cancelled 11/08/24 14:01: Troponin I 4 11/08/24 13:10: Urine Color Yellow, Urine Clarity Clear, Urine pH 6.0, Ur Specific [place] <= 1.005, Urine Protein Negative, Urine Ketones Negative, Urine Blood Negative, Urine Nitrite Negative, Urine Bilirubin Negative, Urine Urobilinogen 0.2, Ur Leukocyte Esterase Negative, Urine Glucose Negative 11/08/24 11:50: Sodium 141, Potassium 4.6, Chloride 104, Carbon Dioxide 28.0, Anion Gap 9.0, BUN 18, Creatinine 1.2, Est GFR (CKD-EPI 2020) 61.90, Glucose 96, Hemoglobin A1c 5.9 H, Calcium 9.9, Magnesium 2.0, Troponin I 4, Triglycerides 195 H, Total Cholesterol 186, LDL Cholesterol, Calc 101 H, HDL Cholesterol 46 H, TSH 2.32, Add-On Test Request DONE [facility] All Active Problems (Updated 11/09/24 @ 12:15 by Elizabet Montes De Oca NP) Tremor of right hand (Acute) Transient ischemic attack (TIA) (Acute) Lipid screening (Acute) Mass of left foot (Acute) Cellulitis (Acute) Benign prostatic hyperplasia (Acute 06/20/13) Male erectile disorder (Acute 06/20/13) 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 Maternal Grandfather , age 30 - Syrian Influenza Stroke Paternal Grandfather , age 85 Stroke Maternal Grandmother , age 50 Stroke Heart disease Paternal Grandmother , age 92 Heart disease Son No problems noted. Son No problems noted. Daughter No problems noted. Mother , age 92 Depression Social History (Updated 09/06/24 @ 13:19 by Rosalinda Braga) Smoking/Tobacco Use Status: Former Tobacco Use tobacco type: cigarettes Quit Date: 07/13/79 Tobacco: How many years used: 10 Second Hand Exposure: No Counseling given: other Smoking risk assessment performed?: Yes Alcohol Intake: current Alcohol Intake frequency: 0-2 drinks per day Alcohol type: beer Drug use: Occasionally Substance use type: marijuana Counseling given: No Counseling provided: none Caregiver/Support person: No Household members: spouse Housing: house Communication Needs: None Do you need help understanding health information?: Rarely Pets and animals: No Sexually active: Yes Do you think of yourself as: straight/heterosexual Current gender identity: male What is your relationship status?: How often do you talk on the phone with friends or family?: three or more times per week How often do you get together with friends or relatives?: once per week How often do you attend yazidism or gnosticist services?: 4 or more times per year Do you belong to any clubs or organized social groups?: yes Panel score (0-1 are the most socially isolated patients): 4 What type of physical activity do you participate in: walking Duration: 45-60 minutes/day Frequency: 3-4 times per week Mecca/Mosque: Scientologist Special mecca needs: No Seatbelt use: always Helmet use: Yes Helmet use: always Drive intox or ride w/intox tram driver: No Time Spent with Patient Time Spent with Patient: 45-69 minutes Time was spent: preparing to see the patient(eg.review tests), obtaining and/or reviewing separately otained hiistory, ordering medications,tests, procedures, referring, communicating with other health managed care provider, indepentently interpreting results and counseling the patient
== END 2024-11-09 15:00 | disposition home or self-care (01) ==
LOC: ER 13:12 → MS 15:57
PROVIDERS: Admitting Provider Family Medicine; Emergency Provider Emergency Medicine; PCP Family Medicine; Responsible Provider Nurse Practitioner Acute Care; Visit Provider Family Medicine
DX: R25.1 Tremor, unspecified (principal); R47.1 Dysarthria and anarthria; R29.701 NIHSS score 1; N40.1 Benign prostatic hyperplasia with lower urinary tract symptoms; R39.12 Poor urinary stream; R20.2 Paresthesia of skin; G47.33 Obstructive sleep apnea (adult) (pediatric); Z79.899 Other long term (current) drug therapy
CPT/HCPCS: 00123; 36415; 36416; 70496; 70498; 80048; 80061; 82962; 93005; 99285; 70551; 71045; 81003; 83036; 83735; 84443; 84484; 85025; 93010; 93306; 99223; 99239; G0378

== ENCOUNTER 2024-11-11 13:01 | Outpatient (CLI) | payer MEDICARE, BC, SELFPAY | END 2024-11-11 13:02 | disposition home or self-care (01) | LOC: CARDOPNVT 13:01 | PROVIDERS: PCP Family Medicine; Visit Provider Family Medicine | DX: G45.9 Transient cerebral ischemic attack, unspecified (principal) | CPT/HCPCS: 93270 ==

== ENCOUNTER 2024-11-24 07:17 | Outpatient (CLI) | payer MEDICARE, BC, SELFPAY ==
--- NOTE | 2024-11-24 08:54 | W.CARDEVENT ---
Date of service: 11/24/24 Time of Service: 08:54 Cardiac Event Recorder Referring Provider:: Tyree Bedolla Indications:: Transient cerebral ischemia Cardiac Event Note: This is a cardiac event monitor. Patient was monitored for 4 days, 22 hours. Rhythm throughout was sinus with an average heart rate of 85. Minimum was 45, maximum 115 No significant dysrhythmias were recorded. There were no apparent patient symptoms
== END 2024-11-24 07:18 | disposition home or self-care (01) ==
LOC: CARDOPNVT 07:17
PROVIDERS: PCP Family Medicine; Visit Provider Internal Medicine Cardiovascular Disease
DX: G45.9 Transient cerebral ischemic attack, unspecified (principal)
CPT/HCPCS: 93272

== ENCOUNTER → 2025-01-11 10:48 | Outpatient (BNVA) | payer MEDICARE, BC, SELFPAY | PROVIDERS: PCP Family Medicine; Referring Provider Nurse Practitioner Acute Care; Visit Provider Psychiatry & Neurology Neurology | DX: R40.4 Transient alteration of awareness (principal); Z79.02 Long term (current) use of antithrombotics/antiplatelets | CPT/HCPCS: 99215 ==